=== PATIENT | female | born 1950 | race Caucasian/White ===

== ENCOUNTER 2024-05-06 06:26 | Day surgery (SDC) | payer OTHER, BC ==
--- NOTE | 2024-05-05 15:32 | RAD REPORT ---
EXAM DESCRIPTION: Loni Pa And Lat (2 Views)05/05/2024 3:12 pm CLINICAL HISTORY: Preop breast surgery COMPARISON: None FINDINGS: Lungs are moderately hyperaerated consistent with COPD. The lungs appear clear of acute infiltrate. The heart is normal size IMPRESSION: No acute abnormalities displayed
[2024-05-05 16:08] LABS: Absolute Basophils 0.1 K/uL (0-0.5); Absolute Eosinophils 0.1 K/uL (0-0.5); Absolute Lymphocytes (CBC) 1.8 K/uL (0.7-4.9); Absolute Monocytes 0.4 K/uL (0.1-1.3); Absolute Neutrophil 5.4 K/uL (1.8-8.0); Basophils % 1.1 % (0-1.3); Eosinophils % 1.1 % (0-4.4); Hemoglobin 15.3 g/dL (12.0-15.0); Lymphocytes % 23.8 % (15.3-44.8); MCH 33.6 pg (27.0-35.0); MCV 98.7 fL (80-100); MPV 8.3 fL (7.6-11.3); Monocytes % 5.2 % (3.3-12.3); Neutrophils % 68.8 % (41.7-73.7); Platelets 290 thou/uL (152-406); RBC Red Blood Cell Count 4.57 M/uL (3.86-4.86); Red Cell Distribution Width 13.7 % (12.1-15.2)
[2024-05-05 16:21] LABS: Anion Gap 6.7 mEq/L (5.0-15.0); Potassium 3.7 mEq/L (3.5-5.1)
[2024-05-06] MEDS: Ringers Lactate 1,000 ML IV ONE (06:45)
[2024-05-06] MEDS ORDERED: METHYLENE BLUE 1% 10 ML VIAL ONE (07:13)
--- NOTE | 2024-05-06 08:37 | RAD REPORT ---
EXAM DESCRIPTION: US - Brst,Preop NL Wire Init w/Guid - 05/06/2024 8:09 am CLINICAL HISTORY: Breast mass FINDINGS: The skin, subcutaneous tissues and breast tissue were anesthetized with lidocaine. Under sonographic guidance a Kopan's hook wire was placed into the 1.2 centimeter mass within the out er right breast. The patient then left for the surgical department IMPRESSION: Ultrasound-guided needle wire localization of a right breast mass
--- NOTE | 2024-05-06 08:38 | RAD REPORT ---
EXAM DESCRIPTION: US - Breast Pre Op Wire Additional - 05/06/2024 8:07 am CLINICAL HISTORY: Breast mass COMPARISON: Ultrasound April 03, 2024 FINDINGS: The skin, subcutaneous tissues and breast tissue were anesthetized with lidocaine. Under sonographic guidance a Kopan's hook wire was placed into the 9 millimeter mass within the outer right breast. The patient then left for the surgical department IMPRESSION: Ultrasound-guided needle wire localization of a right breast mass
[2024-05-06] MEDS ORDERED: MIDAZOLAM HCL 2 MG/2 ML INJ ONE (08:40)
[2024-05-06] MEDS ORDERED: FENTANYL CITR 100 MCG/2 ML ONE (08:40)
[2024-05-06] MEDS ORDERED: LIDOCAINE 2% MPF 5 ML VIAL ONE (08:42)
[2024-05-06] MEDS ORDERED: propofoL 200 MG/20 ML VIAL IV ONE (08:42)
[2024-05-06] MEDS ORDERED: EPHEDRINE SULF 50 MG/ML VIAL ONE (08:52)
[2024-05-06] MEDS: CIPROFLOXACIN 400mg IV 400 MG/200 ML BAG IV ONE (08:55)
[2024-05-06] MEDS ORDERED: ONDANSETRON 4 MG/2 ML VIAL ONE (09:06)
[2024-05-06] MEDS ORDERED: dexAMETHasone 4 MG/ML VIAL ONE (09:06)
--- NOTE | 2024-05-06 09:58 | RAD REPORT ---
EXAM DESCRIPTION: US - Surgical Specimen - 05/06/2024 9:42 am CLINICAL HISTORY: Breast masses COMPARISON: Ultrasound same date IMPRESSION: The hypo to isoechoic masses lie within the resected specimen
[2024-05-06 10:00] VITALS: O2SAT 100
--- NOTE | 2024-05-06 10:07 | P.BOP ---
Preoperative diagnosis: Two breast masses. Strong family hx of breast cancer( mother,Aunt) Postoperative diagnosis: same Primary procedure: Excisional biopsy (lumpectomy)of two breast masses neddle localized Estimated blood loss: <10cc Specimen: mass,needle x 2 in one specimen Findings: Lesion and robbi within the specimen x2 per Dr West Anesthesia: General Complications: None Transferred to: Recovery Room Condition: Good
[2024-05-06] MEDS: HYDROCODONE/APAP 5/325 MG TAB ONE (10:40)
[2024-05-06 13:36] VITALS: BP 157/67; TEMP 97.4
--- NOTE | 2024-05-06 13:51 | EKG ---
Test Date: 2024-05-05 Test Time: 14:54:39 Set Builder: PREO MEASUREMENT RESULTS: Intervals: Rate: 66 MA: 94 QRSD: 88 QT: 416 QTc: 436 [place]: P: 78 MA: 94 QRS: 68 T: 47 INTERPRETIVE STATEMENTS: Sinus rhythm with short MA RSR' or QR pattern in V1 suggests right ventricular conduction delay Nonspecific ST abnormality Abnormal ECG No previous ECG available for comparison Electronically Signed On 05-06-24 13:48:17 CDT by Mir Josue
== END 2024-05-06 11:20 | disposition home or self-care (01) ==
LOC: OR 06:26
PROVIDERS: ATTEND Surgery
PROC: 0HBT0ZZ Excision of Right Breast, Open Approach (ICD-10-PCS; principal; 2024-05-06 08:30)
DX: N60.31 Fibrosclerosis of right breast (principal); Z80.3 Family history of malignant neoplasm of breast
CPT/HCPCS: 19301; 93005; 85025; 80048; 36415; 88305; 71046; 19286; 76098; 19285; J2704; J1100; J2001; J2250; J3010; J2405; J0744; J7120; 88307

== ENCOUNTER 2024-06-15 18:34 | Inpatient (IN) | payer OTHER, BC ==
[2024-06-15] MEDS ORDERED: ONDANSETRON 4 MG/2 ML VIAL ONE (19:54)
[2024-06-15] MEDS ORDERED: NA CHLORIDE 0.9% 1,000 ML ONE (19:55)
[2024-06-15] MEDS ORDERED: MORPHINE 4 MG/ML SYR ONE (19:55)
[2024-06-15 20:07] LABS: Absolute Basophils 0.1 K/uL (0-0.5); Absolute Eosinophils 0.2 K/uL (0-0.5); Absolute Lymphocytes (CBC) 1.8 K/uL (0.7-4.9); Absolute Monocytes 0.5 K/uL (0.1-1.3); Absolute Neutrophil 5.2 K/uL (1.8-8.0); Hematocrit 42.7 % (36.0-45.0); Hemoglobin 14.2 g/dL (12.0-15.0); Lymphocytes % 23.5 % (15.3-44.8); MCH 32.9 pg (27.0-35.0); MCHC 33.3 g/dL (32.0-36.0); MCV 98.8 fL (80-100); MPV 8.2 fL (7.6-11.3); Monocytes % 6.6 % (3.3-12.3); Neutrophils % 66.9 % (41.7-73.7); Platelets 255 thou/uL (152-406); RBC Red Blood Cell Count 4.32 M/uL (3.86-4.86); Red Cell Distribution Width 13.6 % (12.1-15.2)
[2024-06-15 20:08] LABS: Albumin 4.3 g/dL (3.4-5.0); Albumin/Globulin Ratio 1.2 (1.1-1.8); Anion Gap 7.6 mEq/L (5.0-15.0); Bilirubin Total 0.5 mg/dL (0.2-1.0); Globulin 3.7 g/dL (2.3-3.5); Potassium 3.6 mEq/L (3.5-5.1)
[2024-06-15 21:02] LABS: Sqamous Epithelial <5 /HPF (None Seen); Urine Bacteria None Seen /HPF (<20); Urine Bilirubin NEGATIVE (Negative); Urine Blood Negative (Negative); Urine Clarity Clear (Clear); Urine Color Yellow (Yellow); Urine Culture Reflex Order NOT NEEDED; Urine Glucose NEGATIVE (Negative); Urine Ketones NEGATIVE (Negative); Urine Micro Reflex YN NO BILL MICROSCOPIC; Urine Mucus Slight /HPF (None Seen); Urine Nitrite NEGATIVE (Negative); Urine Protein NEGATIVE (Negative); Urine RBC <5 /HPF (None Seen); Urine Urobilinogen Normal (Normal); Urine WBC <5 /HPF (<5)
--- NOTE | 2024-06-15 21:55 | RAD REPORT ---
EXAM DESCRIPTION: CT - Abdomen Pelvis W Contrast - 06/15/2024 9:31 pm CLINICAL HISTORY: Abdominal pain/hernia COMPARISON: none. TECHNIQUE: Computed axial tomography of the abdomen pelvis was obtained. 100 cc Isovue-300 was admin istered intravenously. Oral contrast was not requested which limits evaluation of bowel and appendix All CT scans are performed using dose optimization technique as appropriate and may include automated exposure control or mA/KV adjustment according to patient size. FINDINGS: The liver, pancreas, adrenals and right kidney unremarkable. Small left renal cyst Splenic calcifications Several loops of jejunum are dilated and fluid-filled. It extends into a left inguinal hernia. Ileum decompressed. No free air Normal appendix. No evidence diverticulitis IMPRESSION: Left inguinal hernia contains a loop of jejunum resulting in a mechanical obstruction
[2024-06-15] MEDS ORDERED: FENTANYL CITR 100 MCG/2 ML ONE (22:04)
--- NOTE | 2024-06-15 22:24 | ER ---
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 hb Coronavirus screen: At this time, the client does not indicate any symptoms associated with coronavirus-19. Ebola Screen: No symptoms or risks identified at this time. Initial Sepsis Screen: Does the patient meet any 2 criteria? No. Patient's initial sepsis screen is negative. Does the patient have a suspected source of infection? No. Patient's initial sepsis screen is negative. Risk Assessment: Do you want to hurt yourself or someone else? Patient reports no desire to harm self or others. Onset of symptoms was June 15, 2024. 18:46 Method Of Arrival: Wheelchair hb 18:46 Acuity: TEJ 3 hb Historical: - Allergies: 18:49 PENICILLINS; hb - Home Meds: 18:49 levothyroxine oral [Active]; hb - PMHx: 19:36 Hypothyroidism; mb9 - PSHx: 18:49 Lumpectomy of breast; hb - Immunization history:: Adult Immunizations up to date. - Infectious Disease History:: Denies. - Social history:: Smoking status: Patient denies any tobacco usage or history of. Screenin:35 [facility] ED Fall Risk Assessment (Adult) History of falling in the last 3 months, mb9 including since admission No falls in past 3 months (0 pts) Confusion or Disorientation No (0 pts) Intoxicated or Sedated No (0 pts) Impaired Gait No (0 pts) Mobility Assist Device Used No (0 pt) Altered Elimination No (0 pt) Score/Fall Risk Level 0 - 2 = Low Risk Oriented to surroundings, Maintained a safe environment, Educated pt \T\ family on fall prevention, incl call for assistance when getting out of bed. Abuse screen: Denies threats or abuse. Nutritional screening: No deficits noted. Tuberculosis screening: No symptoms or risk factors identified. Assessment: 19:44 General: Appears in no apparent distress. Behavior is calm, cooperative. Pain: mb9 Complains of pain in pelvis Pain radiates to left groin. Neuro: Taylor Agitation-Sedation Scale (RASS): 0 - Alert and Calm Level of Consciousness is awake, alert, obeys commands, Oriented to person, place, time, situation, Appropriate for age. Cardiovascular: Patient's skin is warm and dry. Respiratory: Airway is patent Respiratory effort is even, unlabored, Respiratory pattern is regular, symmetrical. GI: Abdomen is flat, non-distended. : No signs and/or symptoms were reported regarding the genitourinary system. EENT: No signs and/or symptoms were reported regarding the EENT system. Derm: Skin is pink, warm \T\ dry. Musculoskeletal: Range of motion: intact in all extremities, Swelling present in left groin. 21:00 Reassessment: No changes from previously documented assessment. Patient and/or family mb9 updated on plan of care and expected duration. Pain level reassessed. Patient is alert, oriented x 3, equal unlabored respirations, skin warm/dry/pink. Vital Signs: 18:46 BP 195 / 81; Pulse 78; Resp 16; Temp 97.8(TE); Pulse Ox 100% on R/A; Weight 48.08 kg; hb Height 5 ft. 6 in. ; Pain 8/10; 19:35 BP 167 / 81; Pulse 80; Resp 18; Pulse Ox 100% on R/A; mb9 21:59 BP 144 / 80; Pulse 74; Resp 18; Pulse Ox 100% on R/A; mb9 18:46 Body Mass Index 17.11 (48.08 kg, 167.64 cm) hb 18:46 Pain Scale: Adult hb ED Course: 18:41 Patient arrived in ED. gm2 18:42 Karolina Alexander MD is Attending Physician. gb1 18:42 Nasir Marte MD is Private Physician. gm2 18:49 Triage completed. hb 18:51 Arm band placed on. hb 19:25 Tawnya Patterson RN is Primary Nurse. mb9 19:35 Placed in gown. Bed in low position. Call light in reach. Side rails up X 1. Provided mb9 Education on: press call light if needing anything. Client placed on continuous cardiac and pulse oximetry monitoring. NIBP monitoring applied. 19:41 Inserted saline lock: 20 gauge in right antecubital area, using aseptic technique. ty Blood collected. Flushed with 10 mL NS. 19:41 Initial lab(s) drawn, by me, sent to lab. ty 19:42 CBC with Diff Sent. ty 19:42 CMP Sent. ty 19:42 Lipase Sent. ty 19:45 No provider procedures requiring assistance completed. mb9 19:49 Patient requests pain medication. mb9 20:02 Attending Physician role handed off by Karolina Alexander MD rt 20:02 Wolfgang Berg MD is Attending Physician. rt 21:[address] via wheelchair. mb9 21:33 CT Abd/Pelvis - IV Contrast Only In Process Unspecified. EDMS 22:12 Report given to THIAGO Gilliland. mb9 22:24 Sohail Alex MD is Hospitalizing Provider. rt 22:50 XRAY Abdomen 1 View In Process Unspecified. EDMS 22:50 Chest Single View XRAY In Process Unspecified. EDMS 23:30 Patient admitted, IV remains in place. vc1 Administered Medications: 19:55 Drug: Ondansetron IVP 4 mg IVP once; over 2 minutes Route: IVP; Site: right antecubital;mb9 20:59 Follow up: Response: No adverse reaction mb9 19:59 Drug: morphine IVP or IV 4 mg IVP once over 4 mins Route: IVP; Infused Over: 4 mins; mb9 Site: right antecubital; 20:59 Follow up: Response: No adverse reaction mb9 19:59 Drug: Sodium Chloride 0.9% IVPB 1000 ml IVPB once Route: IVPB; Site: right antecubital; mb9 20:59 Follow up: Response: No adverse reaction; IV Status: Completed infusion mb9 22:06 Drug: fentaNYL (PF) IVP 75 mcg IVP once Route: IVP; Site: right antecubital; mb9 23:00 Follow up: Response: No adverse reaction; Marked relief of symptoms vc1 Medication: 19:36 VIS not applicable for this client. mb9 Outcome: 22:24 Decision to Hospitalize by Provider. rt 23:30 Admitted to ER Hold. Please see [facility] for further documentation. vc1 23:30 Condition: good 23:30 Instructed on the need for admit, vc1 08 11:57 Patient left the ED. mb9 Signatures: Dispatcher [employer] Angelia Salgado, RN RN hb Darshana Olguin RN RN vc1 Yesenia, Tawnya Benitez, RN RN mb9 Wolfgang Berg MD MD rt Karolina Alexander MD MD gb1 Ijeoma Bacon 2 Akshat Mora
--- NOTE | 2024-06-15 22:24 | EDPHYS ---
Physician Documentation [facility] Name: Cedrick Mahan Age: 74 yrs Sex: Female : 1950 Arrival Date: 06/15/2024 Time: 18:34 Bed 20 Private MD: Nasir Marte ED Physician Wolfgang Berg HPI: 06/15 19:37 This 74 yrs old Female presents to ER via Wheelchair with complaints of Groin gb1 Injury, Pain. 19:37 Patient was outside in the stable on her property and pushed a large heavy iron gate gb1 and when she did that she felt a pop in her left groin. She denies any ground-level falls or any other trauma otherwise once reported. She denies any surgical history and does have a past medical history of hypothyroidism and she has an allergy. Patient has pain at the area in the left groin that with visible bulge.. Historical: - Allergies: 18:49 PENICILLINS; hb - Home Meds: 18:49 levothyroxine oral [Active]; hb - PMHx: 19:36 Hypothyroidism; mb9 - PSHx: 18:49 Lumpectomy of breast; hb - Immunization history:: Adult Immunizations up to date. - Infectious Disease History:: Denies. - Social history:: Smoking status: Patient denies any tobacco usage or history of. ROS: 22:24 Constitutional: Negative for fever, chills, and weight loss, Cardiovascular: Negative rt for chest pain, palpitations, and edema, Respiratory: Negative for shortness of breath, cough, wheezing, and pleuritic chest pain, MS/Extremity: Negative for injury and deformity, Skin: Negative for injury, rash, and discoloration, Neuro: Negative for headache, weakness, numbness, tingling, and seizure, 22:24 Abdomen/GI: Positive for abdominal pain, Negative for nausea and vomiting, Exam: 19:37 Constitutional: This is a well developed, well nourished patient who is awake, alert, gb1 and in no acute distress. Head/Face: Normocephalic, atraumatic. Eyes: Pupils equal round and reactive to light, extra-ocular motions intact. Lids and lashes normal. Conjunctiva and sclera are non-icteric and not injected. Cornea within normal limits. Periorbital areas with no swelling, redness, or edema. ENT: Nares patent. No nasal discharge, no septal abnormalities noted. Tympanic membranes are normal and external auditory canals are clear. Oropharynx with no redness, swelling, or masses, exudates, or evidence of obstruction, uvula midline. Mucous membranes moist. Neck: Trachea midline, no thyromegaly or masses palpated, and no cervical lymphadenopathy. Supple, full range of motion without nuchal rigidity, or vertebral point tenderness. No Meningismus. Chest/axilla: Normal chest wall appearance and motion. Nontender with no deformity. No lesions are appreciated. Cardiovascular: Regular rate and rhythm with a normal S1 and S2. No gallops, murmurs, or rubs. Normal PMI, no JVD. No pulse deficits. Respiratory: Lungs have equal breath sounds bilaterally, clear to auscultation and percussion. No rales, rhonchi or wheezes noted. No increased work of breathing, no retractions or nasal flaring. Abdomen/GI: Firm, tender bulge in the left groin. The area is not reducible. Patient with normal bowel sounds. No distension or tympany. + guarding LLQ, no rebound. Back: No spinal tenderness. No costovertebral tenderness. Full range of motion. Skin: Warm, dry with normal turgor. Normal color with no rashes, no lesions, and no evidence of cellulitis. MS/ Extremity: Pulses equal, no cyanosis. Neurovascular intact. Full, normal range of motion. 23:08 ECG was reviewed by the Attending Physician. rt Vital Signs: 18:46 BP 195 / 81; Pulse 78; Resp 16; Temp 97.8(TE); Pulse Ox 100% on R/A; Weight 48.08 kg; hb Height 5 ft. 6 in. ; Pain 8/10; 19:35 BP 167 / 81; Pulse 80; Resp 18; Pulse Ox 100% on R/A; mb9 21:59 BP 144 / 80; Pulse 74; Resp 18; Pulse Ox 100% on R/A; mb9 18:46 Body Mass Index 17.11 (48.08 kg, 167.64 cm) hb 18:46 Pain Scale: Adult hb Procedures: 22:24 Performed Hernia reduction, fentanyl was given for pain control, hernia was reduced rt with direct pressure, abdomen is soft following reduction.. MDM: 19:03 Patient medically screened. gb1 19:37 Differential diagnosis: 74-year-old female here with left groin bulge that is gb1 painful in the area is not reducible concern for incarcerated versus strangulated hernia. CT abdomen pelvis is pending disposition per imaging results. 22:24 Data reviewed: vital signs, nurses notes, lab test result(s), EKG, radiologic studies. rt Consideration of Admission/Observation Patient was admitted/placed on observation. Management of patient was discussed with the following: Secretary Receptionist: Discussed with Dr. Yepez, will operate in the morning. I considered the following discharge prescriptions or medication management in the emergency department Medications were administered in the Emergency Department. See MAR. Independent interpretation of the following test(s) in the Emergency Department CT Scan: My interpretation is Inguinal hernia seen on interpretation of CT scan images. Counseling: I had a detailed discussion with the patient and/or guardian regarding the historical points, exam findings, and any diagnostic results supporting the discharge/admit diagnosis, lab results, radiology results, the need for further work-up and treatment in the hospital. Response to treatment: the patient's symptoms have markedly improved after treatment. 06/15 19:13 Order name: CBC with Diff; Complete Time: 20:47 gb1 06/15 19:13 Order name: CMP; Complete Time: 20:47 gb1 06/15 19:13 Order name: Lipase; Complete Time: 20:47 gb1 06/15 19:13 Order name: Urinalysis W/Microscopic; Complete Time: 21:14 gb1 06/15 22:23 Order name: PT-INR; Complete Time: 23:48 rt 06/15 22:23 Order name: Ptt, Activated; Complete Time: 23:48 rt 06/15 20:47 Order name: CT Abd/Pelvis - IV Contrast Only; Complete Time: 21:56 rt 06/15 22:23 Order name: XRAY Abdomen 1 View rt 06/15 22:23 Order name: Chest Single View XRAY rt 06/15 22:23 Order name: EKG; Complete Time: 22:24 rt 06/15 22:39 Order name: CONS Physician Consult EDMS 06/15 19:13 Order name: IV Saline Lock; Complete Time: 19:36 gb1 06/15 19:13 Order name: Labs collected and sent; Complete Time: 19:36 gb1 06/15 19:52 Order name: NPO; Complete Time: 19:53 gb1 06/15 22:23 Order name: EKG - Nurse/Tech; Complete Time: 01:31 rt 06/15 22:23 Order name: O2 Per Protocol; Complete Time: 22:54 rt 06/15 22:23 Order name: O2 Sat Monitoring; Complete Time: 22:54 rt EC:08 Rate is 64 beats/min. Rhythm is regular, Normal Sinus Rhythm with No ectopy. QRS [place] rt is Normal. HI interval is normal. QRS interval is normal. QT interval is normal. No Q waves. Administered Medications: 19:55 Drug: Ondansetron IVP 4 mg IVP once; over 2 minutes Route: IVP; Site: right antecubital;mb9 20:59 Follow up: Response: No adverse reaction mb9 19:59 Drug: morphine IVP or IV 4 mg IVP once over 4 mins Route: IVP; Infused Over: 4 mins; mb9 Site: right antecubital; 20:59 Follow up: Response: No adverse reaction mb9 19:59 Drug: Sodium Chloride 0.9% IVPB 1000 ml IVPB once Route: IVPB; Site: right antecubital; mb9 20:59 Follow up: Response: No adverse reaction; IV Status: Completed infusion mb9 22:06 Drug: fentaNYL (PF) IVP 75 mcg IVP once Route: IVP; Site: right antecubital; mb9 23:00 Follow up: Response: No adverse reaction; Marked relief of symptoms vc1 Disposition Summary: 06/15/24 22:24 Hospitalization Ordered Notes: Hospitalization Status: Observation rt Provider: Sohail Alex rt Condition: Stable rt Problem: new rt Symptoms: have improved rt Bed/Room Type: Standard rt Location: [facility] ER HOLD(06/15/24 22:53) vc1 Room Assignment: ERHOLD-(06/15/24 22:53) vc1 Diagnosis - Left inguinal hernia with mechanical obstruction rt Forms: - Medication Reconciliation Form rt - SBAR form rt - Leadership Thank You Letter rt Signatures: Dispatcher [employer] Angelia Salgado RN RN Darshana Olguin RN RN vc1 Tawnya Patterson RN RN mb9 Wolfgang Berg MD MD rt Karolina Alexander MD MD gb1 Corrections: (The following items were deleted from the chart) 22:23 Chest Single View+RAD.RAD.BRZ ordered. EDMS EDMS 22:24 Telemetry/MedSurg (observation) rt vc1 22:24 rt vc1 22:23 Cardiac monitoring ordered. rt rt
[2024-06-15 23:14] VITALS: BMI 17.6
[2024-06-15] MEDS ORDERED: ONDANSETRON 4 MG/2 ML VIAL IV PRN (23:23)
[2024-06-15] MEDS ORDERED: NA CHLORIDE 0.9% 1,000 ML IV SCH (23:23)
[2024-06-15] MEDS ORDERED: MORPHINE 2 MG/ML SYR IV PRN (23:23)
[2024-06-15 23:46] LABS: PT Prothrombin Time 11.7 SECONDS (9.4-12.5); PTT, Activated Partial Thromb 38.1 SECONDS (24.3-36.9); Protime INR 1.05
[2024-06-16] MEDS ORDERED: ONDANSETRON 4 MG/2 ML VIAL ONE (10:47)
[2024-06-16] MEDS ORDERED: GLYCOPYRROLATE 0.2 MG/ML SYR ONE (10:47)
[2024-06-16] MEDS ORDERED: NEOSTIGMINE 1 MG/ML -10 ML VIAL ONE (10:47)
[2024-06-16] MEDS ORDERED: LIDOCAINE 2% MPF 5 ML VIAL ONE (10:47)
[2024-06-16] MEDS ORDERED: ROCURONIUM 50 MG/5 ML VIAL IV ONE (10:47)
[2024-06-16] MEDS ORDERED: propofoL 200 MG/20 ML VIAL IV ONE (10:48)
[2024-06-16] MEDS ORDERED: FENTANYL CITR 100 MCG/2 ML ONE (10:51)
--- NOTE | 2024-06-16 10:51 | RAD REPORT ---
EXAM DESCRIPTION: Chest Single View CLINICAL HISTORY: Preop. TECHNIQUE: Frontal view of the chest. COMPARISON: No relevant prior studies available. FINDINGS: Lungs: Hyperinflation and coarsened interstitial markings. No focal consolidation. Pleural space: Unremarkable. No pneumothorax. Heart: Unremarkable. No cardiomegaly. Mediastinum: Unremarkable. Normal mediastinal contour. Bones/joints: Mild thoracic dextroscoliosis. No acute fracture. Vasculature: Thoracic aortic atherosclerosis. IMPRESSION: No acute disease. Electronically signed by: Jose Latham MD 06/15/2024 11:30 PM CDT Due to temporary technical issues with the PACS/Fluency reporting system, reports are being signed by the in house radiologists without review as a courtesy to insure prompt reporting. The interpreting radiologist is fully responsible for the content of the report.
[2024-06-16 10:52] VITALS: BP 138/78; TEMP 97.5
--- NOTE | 2024-06-16 10:55 | RAD REPORT ---
EXAM DESCRIPTION: XR Abdomen, 1 View CLINICAL HISTORY: ABD PAIN TECHNIQUE: Frontal supine view of the abdomen/pelvis. COMPARISON: No relevant prior studies available. FINDINGS: Gastrointestinal tract: Moderate stool. Gas is seen to the level of the rectosigmoid col on. No small bowel dilation. Organs: Excreted contrast is present within both renal collecting systems and the urinary bladder. Bones/joints: Mild multilevel spondylosis. No acute fracture. IMPRESSION: Nonobstructive bowel gas pattern. Moderate stool. Electronically signed by: Jose Latham MD 06/15/2024 11:25 PM CDT RP Due to temporary technical issues with the PACS/Fluency reporting system, reports are being signed by the in house radiologists without review as a courtesy to insure prompt reporting. The interpreting radiologist is fully responsible for the content of the report.
--- NOTE | 2024-06-16 12:28 | P.CNS ---
Date of Consult: 06/16/24 PC: I was asked to see this patient in regards to a left inguinal hernia. HPC: This 74-year-old female who I know well, presented to the emergency room with severe pain in her left inguinal area. She had been pushing again shot slightly bent over and noticed a sudden onset of extreme pain. Also feels a bulge in her groin. Happened earlier in the day. She managed to make it back to the house and was brought to the emergency room by her . In the emergency room clinically and on CT scan a incarcerated left inguinal hernia was noted. After receiving some IV medication, the hernia was able to be reduced. I had intended on repairing her hernia today, however this morning she was brought a breakfast. PSHx: Previous breast surgery PMHx: NAD Social Hx: Allergic to penicillin Sys R: No cough, wheeze, shortness of breath. No chest pain or palpitations. Denies any change in bowel habit. States she has been having some mild trouble with her mentation, but is working with Dr. Alex on that issue at the moment. O/E: Awake alert comfortable in no distress at the moment HEENT: Negative Chest: Chest movement equal bilaterally Abd: Soft, nontender. Has a left inguinal defect, but is hernia has been and still is reduced. [place]: Intact Data: CT scan demonstrated incarcerated hernia, however after receiving some IV medication, that hernia was able to be reduced by ER physician. Impression: Status post reduction of incarcerated left inguinal hernia Plan: I had intended on taking the patient to sporting to for a repair of her left inguinal hernia. Unfortunately she had a breakfast. 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 We will let her be discharged as she is not in acute crisis, and by tomorrow to be a lot of edema in the area. I would prefer to wait at least a week to 10 days before doing elective procedure. We have also discussed with her the option of not having surgery, being careful with it, realizing that should become incarcerated again, she could always come back to the emergency room and have it repaired. She and her will ponder this and meet with me next week to further discuss her decision. She will be discharged today, with the obvious caveat that should it recur, or she have increased pain nausea vomiting that she would return to the ER. She is comfortable with this decision.
--- NOTE | 2024-06-16 17:06 | EKG ---
Test Date: 2024-06-15 Test Time: 23:04:53 [employer]: RV MEASUREMENT RESULTS: Intervals: Rate: 64 CA: 118 QRSD: 86 QT: 448 QTc: 462 [place]: P: 73 CA: 118 QRS: 66 T: 51 INTERPRETIVE STATEMENTS: Normal sinus rhythm Nonspecific ST abnormality Abnormal ECG Compared to ECG 05/05/2024 14:54:39 Short CA interval no longer present ST (T wave) deviation still present Electronically Signed On 06-16-24 17:04:32 CDT by Mir Josue
--- NOTE | 2024-06-16 21:07 | P.SSS ---
Patient History Date of Service: 06/16/24 Reason for admission: L GROIN HERNIA History of Present Illness: JESSE HAS MILD COGNITIVE IMPAIRMENT. 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 SHE DEVELOPED SEVERE ACUTE PAIN AND SWELLING IN L GRO[place]. SHE REPORTED TO ER. CT SHOWED HERNIA WITH BOWEL TRAPPED AND OBSTRUCTION. MEANWHILE IT RESOLVED ITSELF. I CAME TO SEE HER IN AM AND SHE WAS BACK TO HER NORMAL. SHE WANTS TO GO HOME. SHE HAS NO PAIN OR SWELLING AND I AGREE. I LEFT MESSAGE TO DR. AVITIA SO HE CAN RELEASE THE PATIENT. HE CAME ABOUT LUNCH TIME, EXAMINED THE PATIENT AND RELEASED FOR DISCHARGE. Allergies Penicillins Allergy (Verified 05/05/24 14:36) Anaphylaxis Home medications list reviewed: Yes Home Medications: Calcium Carbonate [Calcium] 1,200 mg PO DAILY 05/05/24 Cholecalciferol (Vitamin D3) [D3-50] 800 mg PO DAILY 05/05/24 Levothyroxine Sodium [Levothyroxine] 25 mcg PO DAILY 05/05/24 Codeine/APAP [Tylenol W/Codeine #3 tab] 1 tab PO Q6HP PRN #1 tab 05/06/24 Sulfamethoxazole/Trimethoprim [Bactrim 400-80 mg Tablet] 1 tab PO BID 06/15/24 - Past Medical/Surgical History Has patient received pneumonia vaccine in the past: Yes Diabetic: No -: Hypothyroidism -: Low calcium -: Right breast nodules -: Right breast lumpectomy - Social History Smoking Status: Former smoker Place of Residence: Home Review of Systems 10-point ROS is otherwise unremarkable Physical Examination - Vital Signs Temperature: 97.5 F Blood Pressure: 138/78 Pulse: 71 Respirations: 18 Pulse Ox (%): 97 - Physical Exam General: In no apparent distress HEENT: Atraumatic, PERRLA, Mucous membr. moist/pink, EOMI, Sclerae nonicteric Neck: Supple, 2+ carotid pulse no bruit, No LAD, Without JVD or thyroid abnormality Respiratory: Clear to auscultation bilaterally, Normal air movement Cardiovascular: Regular rate/rhythm, Normal S1 S2 Gastrointestinal: Normal bowel sounds, No tenderness Musculoskeletal: No tenderness Integumentary: No rashes Neurological: Normal gait, Normal speech, Normal strength at 5/5 x4 extr, Normal tone, Normal affect Lymphatics: No axilla or inguinal lymphadenopathy - Studies Laboratory Data (last 24 hrs) 06/15/24 22:55 PT 11.7 INR 1.05 APTT 38.1 H - Diagnosis (Problem(s)) (1) Inguinal hernia with bowel obstruction Status: Acute Plan: SHE HAS RESOLVED SITUATION NOW. SHE HAS NO HERNIA OR OBSTRUCTION. SHE IS STABLE TO GO HOME. SEE HPI FU WITH DR. VERDUZCO. - Disposition Disposition: DC HOME/HOME HEALTH CARE Condition: GOOD
[2024-06-17 01:39] VITALS: O2SAT 100
[2024-06-17] MEDS ORDERED: LEVOTHYROXINE SOD 0.025 MG TAB PO SCH (06:30)
== END 2024-06-16 12:07 | disposition home or self-care (01) | DRG 395 ==
LOC: ER 18:34 → ERHOLD 22:36 → OBSVTOIN 06-16 08:01
PROVIDERS: ADMIT Internal Medicine; ATTEND Internal Medicine
DX: K40.30 Unilateral inguinal hernia, with obstruction, without gangrene, not specified as recurrent (principal); E03.9 Hypothyroidism, unspecified; G31.84 Mild cognitive impairment of uncertain or unknown etiology; Z88.0 Allergy status to penicillin; Z79.890 Hormone replacement therapy; Z79.899 Other long term (current) drug therapy; Z87.891 Personal history of nicotine dependence
CPT/HCPCS: 36415; 71045; 74018; 74177; 80053; 81001; 83690; 85025; 85610; 85730; 93005; 96365; 96375; 99285; G0378; J2001; J2405; J2704; J2710; J3010; J7030; Q9967

== ENCOUNTER 2024-11-17 17:14 | Emergency (ER) | payer OTHER, BC ==
--- NOTE | 2024-11-17 17:39 | EDPHYS ---
Physician Documentation [facility] Name: Cedrick Mahan Age: 74 yrs Sex: Female : 1950 Arrival Date: 11/17/2024 Time: 17:14 Bed 6 Private MD: ED Physician Isaac Moya HPI: 11/17 17:36 This 74 yrs old Female presents to ER via Unassigned with complaints of sent by sp3 pcp:stomach pain. 17:36 74-year-old female with a history of inguinal hernia and bowel obstruction in the past sp3 presents with diffuse abdominal pain. During the discussion with the patient, I mentioned that we do not have CT scanners that are functional at this hospital and that we would need to transfer her to another facility for imaging. At that time she declined further visit and states that she will go via private vehicle to another facility for treatment. I offered transfer however she elects to go on her own.. Historical: - Allergies: 17:38 PENICILLINS; tm6 - PMHx: 17:38 Hypothyroidism; tm6 - PSHx: 17:38 Lumpectomy of breast; tm6 - Immunization history:: Flu vaccine status is unknown. - Infectious Disease History:: Denies. - Social history:: Smoking status: Patient denies any tobacco usage or history of. Vital Signs: 17:37 BP 180 / 103; Pulse 58; Resp 19; Temp 97.2(TE); Pulse Ox 100% on R/A; MAP 124 mmHg; tm6 Pain 9/10; 17:37 Pain Scale: Adult tm6 MDM: 17:27 Medical Screening Exam initiated sp3 17:37 Data reviewed: vital signs, old medical records. ED course: Abdomen soft however sp3 painful to palpation. Vital signs are normal. We offered transfer to another facility for CT scan however understandably, they are going to another facility on their own. I told him they are welcome back here at any time or if they change her mind before leaving. We will put this and inform discharge however patient was counseled as AMA including risks of leaving including , disability, pain and suffering, loss of income, loss of lifestyle, among others.. Administered Medications: No medications were administered Disposition Summary: 11/17/24 17:38 Discharge Ordered Notes: Location: Home sp3 Condition: Undetermined sp3 Diagnosis - Abdominal pain sp3 Followup: sp3 - With: Emergency Department - When: She may return here at any time - Reason: Forms: - Medication Reconciliation Form sp3 - Antibiotic Education sp3 - Prescription Opioid Use sp3 - Patient Portal Instructions sp3 - Leadership Thank You Letter sp3 Signatures: Isaac Moya MD MD sp3 Lamin Heath RN RN tm6
--- NOTE | 2024-11-17 17:39 | ER ---
Nurse's Notes [facility] Name: Cedrick Mahan Age: 74 yrs Sex: Female : 1950 Arrival Date: 11/17/2024 Time: 17:14 Bed 6 Private MD: Diagnosis: Abdominal pain Presentation: 11/17 17:37 Chief complaint: Patient states: possible hernia on left side of pubic area. 9/10 pain. tm6 Has had this before. Coronavirus screen: Client denies travel out of the [place] in the last 14 days. Ebola Screen: Patient negative for fever greater than or equal to 101.5 degrees Fahrenheit, and additional compatible Ebola Virus Disease symptoms Patient denies exposure to infectious person. Patient denies travel to an Ebola-affected area in the 21 days before illness onset. No symptoms or risks identified at this time. Initial Sepsis Screen: Does the patient meet any 2 criteria? No. Patient's initial sepsis screen is negative. Does the patient have a suspected source of infection? No. Patient's initial sepsis screen is negative. Risk Assessment: Do you want to hurt yourself or someone else? Patient reports no desire to harm self or others. Onset of symptoms was November 17, 2024. 17:37 Method Of Arrival: Ambulatory 6 17:37 Acuity: TEJ 3 tm6 Triage Assessment: 17:38 General: Appears in no apparent distress. Behavior is calm, cooperative. Pain: tm6 Complains of pain in groin and left femoral area Pain currently is 9 out of 10 on a pain scale. EENT: No signs and/or symptoms were reported regarding the EENT system. Neuro: Level of Consciousness is awake, alert, obeys commands, Oriented to person, place, time, situation. Cardiovascular: Patient's skin is warm and dry. Respiratory: Airway is patent Respiratory effort is even, unlabored, Respiratory pattern is regular, symmetrical. GI: Abdomen is flat, non-distended, Reports lower abdominal pain. : Reports pain in suprapubic area. Derm: No signs and/or symptoms reported regarding the dermatologic system. Musculoskeletal: No signs and/or symptoms reported regarding the musculoskeletal system. Historical: - Allergies: 17:38 PENICILLINS; tm6 - PMHx: 17:38 Hypothyroidism; tm6 - PSHx: 17:38 Lumpectomy of breast; tm6 - Immunization history:: Flu vaccine status is unknown. - Infectious Disease History:: Denies. - Social history:: Smoking status: Patient denies any tobacco usage or history of. Screenin:40 [facility] ED Fall Risk Assessment (Adult) History of falling in the last 3 months, tm6 including since admission No falls in past 3 months (0 pts) Confusion or Disorientation No (0 pts) Intoxicated or Sedated No (0 pts) Impaired Gait No (0 pts) Mobility Assist Device Used No (0 pt) Altered Elimination No (0 pt) Score/Fall Risk Level 0 - 2 = Low Risk Oriented to surroundings, Maintained a safe environment, Educated pt \T\ family on fall prevention, incl call for assistance when getting out of bed. Abuse screen: Denies threats or abuse. Denies injuries from another. Nutritional screening: No deficits noted. Tuberculosis screening: No symptoms or risk factors identified. Assessment: 17:40 Reassessment: see triage assessment. tm6 Vital Signs: 17:37 BP 180 / 103; Pulse 58; Resp 19; Temp 97.2(TE); Pulse Ox 100% on R/A; MAP 124 mmHg; tm6 Pain 9/10; 17:37 Pain Scale: Adult tm6 ED Course: 17:20 Patient arrived in ED. ra3 17:20 Isaac Moya MD is Attending Physician. sp3 17:38 Triage completed. tm6 17:38 Arm band placed on right wrist. tm6 17:40 Patient has correct armband on for positive identification. Bed in low position. Call tm6 light in reach. Side rails up X 1. Provided Education on: CT options. 17:40 No provider procedures requiring assistance completed. Patient did not have IV access tm6 during this emergency room visit. Administered Medications: No medications were administered Medication: 17:40 VIS not applicable for this client. tm6 Outcome: 17:38 Discharge ordered by . sp3 17:40 Discharged to home via wheelchair, with family, tm6 17:40 Condition: stable 17:40 Discharge instructions given to patient, family, Instructed on discharge instructions, follow up and referral plans. Demonstrated understanding of instructions, follow-up care, 17:43 Medical screen evaluation completed per provider. Patient declined treatment. jb4 17:43 Patient left the ED. jb4 Signatures: Bradford Vargas, RN RN jb4 Isaac Moya MD MD sp3 Lamin Heath RN RN tm6 Nga Zimmerman ra3
[2024-11-17 17:51] VITALS: BP 180/103; TEMP 97.2; O2SAT 100
== END 2024-11-17 17:43 | disposition home or self-care (01) ==
LOC: ER 17:14
DX: R10.9 Unspecified abdominal pain (principal)
CPT/HCPCS: 99282

== ENCOUNTER 2024-11-30 07:53 | Day surgery (SDC) | payer OTHER, BC ==
[2024-11-26 11:10] LABS: Absolute Eosinophils 0.1 K/uL (0-0.5); Absolute Lymphocytes (CBC) 1.2 K/uL (0.7-4.9); Absolute Monocytes 0.3 K/uL (0.1-1.3); Absolute Neutrophil 4.4 K/uL (1.8-8.0); Basophils % 0.8 % (0-1.3); Eosinophils % 1.9 % (0-4.4); Hematocrit 44.9 % (36.0-45.0); Hemoglobin 15.3 g/dL (12.0-15.0); Lymphocytes % 20.3 % (15.3-44.8); MCH 33.3 pg (27.0-35.0); MCHC 34.1 g/dL (32.0-36.0); MCV 97.9 fL (80-100); MPV 7.8 fL (7.6-11.3); Monocytes % 5.3 % (3.3-12.3); Neutrophils % 71.7 % (41.7-73.7); Nucleated Red Blood Cells % 0.1 % (0-0); Platelets 285 thou/uL (152-406); RBC Red Blood Cell Count 4.59 M/uL (3.86-4.86); Red Cell Distribution Width 14.5 % (12.1-15.2)
[2024-11-26 11:21] LABS: Anion Gap 4.1 mEq/L (5.0-15.0); Potassium 4.1 mEq/L (3.5-5.1)
[2024-11-30] MEDS: Ringers Lactate 1,000 ML IV ONE (08:15)
[2024-11-30 09:08] VITALS: O2SAT 100
[2024-11-30] MEDS ORDERED: LIDOCAINE 1% MPF 5 ML VIAL ONE (09:17)
[2024-11-30] MEDS ORDERED: propofoL 200 MG/20 ML VIAL IV ONE ×2 (09:17→09:57)
[2024-11-30] MEDS ORDERED: EPHEDRINE SULF 50 MG/ML VIAL ONE (09:17)
[2024-11-30 10:58] VITALS: TEMP 98.2
[2024-11-30 11:01] VITALS: BP 131/70
== END 2024-11-30 10:38 | disposition home or self-care (01) ==
LOC: OR 07:53
PROVIDERS: ATTEND Surgery
PROC: 0DBN8ZX Excision of Sigmoid Colon, Via Natural or Artificial Opening Endoscopic, Diagnostic (ICD-10-PCS; 2024-11-30)
PROC: 0DBK8ZX Excision of Ascending Colon, Via Natural or Artificial Opening Endoscopic, Diagnostic (ICD-10-PCS; principal; 2024-11-30 09:15)
DX: Z12.11 Encounter for screening for malignant neoplasm of colon (principal); D12.2 Benign neoplasm of ascending colon; K63.5 Polyp of colon; K64.8 Other hemorrhoids; K64.4 Residual hemorrhoidal skin tags; K57.30 Diverticulosis of large intestine without perforation or abscess without bleeding
CPT/HCPCS: 85025; 80048; 36415; 88305; 45384; J2704 ×2; J2003; J7120

== ENCOUNTER 2024-12-07 08:22 | Day surgery (SDC) | payer OTHER, BC ==
[2024-12-07] MEDS: Ringers Lactate 1,000 ML IV ONE (08:50)
[2024-12-07] MEDS ORDERED: ONDANSETRON 4 MG/2 ML VIAL ONE (11:24)
[2024-12-07] MEDS ORDERED: ROCURONIUM 50 MG/5 ML VIAL IV ONE (11:24)
[2024-12-07] MEDS ORDERED: LIDOCAINE 2% MPF 5 ML VIAL ONE (11:24)
[2024-12-07] MEDS ORDERED: FENTANYL CITR 100 MCG/2 ML ONE (11:25)
[2024-12-07] MEDS ORDERED: propofoL 200 MG/20 ML VIAL IV ONE (11:25)
[2024-12-07] MEDS ORDERED: SUGAMMADEX SODIUM 200 MG/2 ML VIAL IV ONE (11:34)
[2024-12-07] MEDS ORDERED: EPHEDRINE SULF 50 MG/ML VIAL ONE (12:01)
[2024-12-07] MEDS: CIPROFLOXACIN 400mg IV 400 MG/200 ML BAG IV ONE (12:16)
[2024-12-07] MEDS ORDERED: dexAMETHasone 10 MG/ML VIAL ONE (12:36)
[2024-12-07] MEDS ORDERED: Mastisol Adhesive Liq ONE (12:36)
--- NOTE | 2024-12-07 12:55 | P.BOP ---
Preoperative diagnosis: tender left inguinal hernia Postoperative diagnosis: same Primary procedure: Laparoscopic repair of tender left inguinal hernia with mesh Estimated blood loss: <10cc Specimen: none Findings: left inguinal hernia Anesthesia: General Complications: None Drain(s): Other (mesh medium 3D) Transferred to: Recovery Room Condition: Good
[2024-12-07] MEDS: HYDROMORPHONE HCL 1 MG/ML INJ ONE ×2 (13:27→13:47)
[2024-12-07] MEDS: CODEINE 30MG/APAP 300MG TAB ONE (14:30)
[2024-12-07 14:49] VITALS: BP 102/73; TEMP 97.4; O2SAT 98
--- NOTE | 2024-12-08 01:49 | OP ---
Date of Procedure: 12/07/2024 Surgeon: Miguel Nelson MD Preoperative Diagnosis: Tender left inguinal hernia. Postoperative Diagnosis: Tender left inguinal hernia. Procedure: Laparoscopic repair of tender left inguinal hernia with mesh. Estimated Blood Loss: Less than 10 cc. Specimen: None. Findings: Left inguinal hernia. Anesthesia: General plus local. Complications: None. Indication: This is a case of a 74-year-old patient complaining of a tender left inguinal hernia. T he benefits, alternatives, and risks of laparoscopic versus open repair with mesh fully explained to the patient which include, but not limited to infection, bleeding, damage to adjacent structures, ane sthesia complication, recurrence, chronic pain, chronic numbness, MA, and . She also understood this may not relieve the symptoms. She might need more than one surgical intervention. She underst ood, signed a consent. Procedure In Detail: The patient was brought to the operating room, placed in supine position. Anes thesia was done without complication. The abdomen and inguinal region were prepped and draped in a s terile fashion. Marcaine 0.5% was injected for local anesthetic followed by sharp incision of the sk in in the infraumbilical region. We find the anterior rectus sheath, it was opened and the muscle re tracted laterally to expose the posterior rectus sheath. The patient was in Trendelenburg position. The extraperitoneal peritoneal space was developed with the help of blunt dissection and a balloon t rocar was placed in that area directed to the pubis symphysis. With the laparoscope in place, we pro ceeded to inflate the balloon under direct visualization to create the extraperitoneal space. After that, the balloon was deflated and removed. We inflate the area. The patient once again still in Tr endelenburg position with left side up. Under direct visualization, we proceeded to put a 5 mm troca r just about the pubis symphysis and another 1 alf between the first and the second one. After t hat, the preperitoneal space was further developed by exposing the inferior epigastric vessels keepin g them anterior. The Familia ligament was dissected laterally to the junction with the iliac veins an d dissection continued inferiorly to the iliopubic tract avoiding damage to the femoral branch of the genitofemoral nerve and the lateral femoral cutaneous nerve. The cord structures were carefully ske letonized. The hernia sac was identified, reduced by gentle traction into the peritoneal cavity. At that moment, I proceeded to introduce a medium 3D mesh on the working space open to cover direct, in direct spaces. After that, we secured the mesh with SorbaFix lateral and superior to the iliopubic t ract and inferior and medial to the Familia ligament. After ensuring adequate hemostasis, we proceede d to stop the insufflation and allowed the air to escape as we were holding the mesh in place. At th at moment, I proceeded then to remove the trocars and then closed the anterior rectus sheath with #1 Vicryl and the subcutaneous tissue with 3-0 chromic and the skin subcutaneously with 3-0 chromic. Sp onge counts and instrument counts were correct. The patient tolerated the procedure well. The patie nt sent to recovery in stable condition. Condition: Stable. Disposition: Home. Activity: As tolerated. No lifting. Follow up in my office in 1 week. Call for appointment [phone]. . Keep area dry for 48 hours, the n may shower. Keep Steri-Strip intact. Cool compress to the left inguinal region for the next 24 ho urs. Medication will recalled from the office. ANKIT/IRVING Voice ID: [id number] Report ID: [id number]
== END 2024-12-07 15:05 | disposition home or self-care (01) ==
LOC: OR 08:22
PROVIDERS: ATTEND Surgery
PROC: 0YU64JZ Supplement Left Inguinal Region with Synthetic Substitute, Percutaneous Endoscopic Approach (ICD-10-PCS; principal; 2024-12-07 12:28)
DX: K40.90 Unilateral inguinal hernia, without obstruction or gangrene, not specified as recurrent (principal)
CPT/HCPCS: 49650; J2704; J2003; J3010; J1100; J1171 ×2; J2405; J0744; J7120; C1781; A4314